=== PATIENT | female | born 1985 | race Hispanic/Latino ===

== ENCOUNTER 2021-08-13 21:49 | Emergency (ER) | payer SELFPAY ==
--- OUTSIDE RECORDS SUMMARY | 2021-08-13 21:53 | XMS REPORT | Continuity of Care Document ---
:[address] [facility] t Address [address] [place] [address] Care Team Providers Name Role Phone Spenser POLLOCK Primary Care Physician TRITSCHLER Attending Clinician Unavailable TRITSCHLER Attending Clinician Unavailable SPENSER Attending Clinician Unavailable Spenser POLLOCK Attending Clinician Doctor Unassigned, Name Attending Clinician Unavailable Pob, Lab Main Attending Clinician Unavailable Unknown Attending Clinician Unavailable SPENSER Admitting Clinician Unavailable Spenser POLLOCK Admitting Clinician Payers Payer Name Policy Type Policy Number Effective Date Expiration Date Deepti young [facility] [id number] 2020 00:00:00 R [id number] 2016 00:00:00 Problems Condition Condition Condition Status Onset Resolution Last Treating Co mments Source Name Details Category Date Date Treatment Clinician Date Liveborn Liveborn Disease Active Unive rs infant, of infant, of 5-28 [place] y of [place] , 00 [place] born in born in [facility] by by delivery delivery 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 5-26 [place]y of with mixed [place] emotional emotional 00 Medi emilie features features Branch Personal Personal Disease Active Unive rs history of history of 5-26 it y of return return 00:00: [place] 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 Other Other Disease Active Univers spondylosi spondylosi 5-26 it y of s with s with 00:00: [place] radiculopa radiculopa 00 Me dical thy, thy, Branch cervical cervical region region Hypothyroi Hypothyroi Disease Active U nivers dism dism 08-09 ity of 00:: [place] [facility] History of History of Disease Active U nivers 08-09 ity of section section 00:00: [place] [facility] Diet Diet Disease Active Univers controlled controlled 08-09 it y of gestationa gestationa 00:[place] l diabetes l diabetes 00 Me dical mellitus mellitus Branch (GDM), (GDM), antepartum antepartum Polyhydram Polyhydram Disease Active U nivers nios, nios, 08-09 ity of antepartum antepartum 00:00[place] , single , single 00 Medica l or or Branch unspecifie unspecifie d fetus d fetus Chronic Chronic Disease Active Univers hypertensi hypertensi 08-09 it y of on on 00:00: [place] affecting affecting 00 Medi emilie Bran ch Obesity in Obesity in Disease Active U nivers 08-09 ity of 00:00: [place] [facility] Supervisio Supervisio Disease Active U nivers n of n of 08-09 ity of high-risk high-risk 00:00[place] 00 Med[place] emilie of elderly of elderly Br anch multigravi multigravi da da Allergies, Adverse Reactions, Alerts Allergy Allergy Status Severity Reaction(s) Onset Inactive Treating Comm ents Source Name Type Date Date Clinician NO KNOWN Drug Active Univers ALLERGIE Class ity of S [facility] Social History Social Habit Start Date Stop Date Quantity Comments Source ASSERTION 2020-11-26 [facility] 00:00:00 [facility] Alcohol intake 2021-08-10 2021-08-10 Ex-drinker [facility] 00:00:00 00:00:00 (finding) [facility] Exposure to 2021-07-30 2021-08-09 Not sure University of SARS-CoV-2 00:00:00 09:36:00 [facility] (event) [facility] Tobacco use and 2021-08-09 2021-08-09 Never used Universit y of exposure 00:00:00 00:00:00 [facility] Sex Ass[birth year] Universit y of 00:00:00 00:00:00 [facility] Smoking Status Start Date Stop Date Source Never smoker [place] [facility] Branch Medications Ordered Filled Start Stop Current Ordering Indication Dosage Frequency Signature Comments Components Source Medication Medication Date Date Medication? Clinician (SIG) Name Name ibuprofen Yes 600mg 600 mg, Univ ers (IBU) 5-28 Oral, Q6H, ity of tablet 600 23:00: First dose [place] mg 00 on [facility] 08/11/21 at Branch 1800, Until Discontinu ed, Routine SERTraline Yes 100mg Take 100 Un krissy 100 mg 5-28 mg by ity of tablet 22:53: mouth [place] 44 daily. Medical Branch levothyroxi Yes 25ug Take 25 Uni vers ne 5-28 mcg by ity of (SYNTHROID) 22:53: mouth [place] 25 mcg 44 every Medical tablet morning. Branch traZODone Yes 100mg Take 100 Uni vers 100 mg 5-28 mg by ity of tablet 22:53: mouth at [place] [address] bedtime. Medical Branch metoprolol Yes Take by Uni vers succinate 5-28 mouth. ity of 25 mg CSpX 22:53: [place] 44 Medical Branch ergocalcife Yes Take by Un krissy rol, 5- mouth. ity of vitamin D2, 22:53: [place] (VITAMIN D 44 Medical ORAL) Branch Melatonin 5 Yes 1{tbl} Take 1 Un krissy mg tablet 5-28 tablet by ity o f 22:53: mouth as [place] [address] needed Medical (prn Branch sleep). diphenhydrA Yes 25mg Take 25 mg Univers MINE 5-28 by mouth ity of (BENADRYL) 22:53: at bedtime [place] 25 mg 44 as needed Medical capsule for Branch Allergies. aspirin 81 2021- No Take by Un krissy mg Cap -11 08- mouth. ity of 19:53: 00:00 [place] 57 :00 Medical Branch gabapentin 2021- No 300mg 300 mg, Un krissy (NEURONTIN) -11 08- Oral, ity of capsule 300 17:00: 17:38 ONCE, 1 [place] mg 00 :00 dose, On Medical [facility] 08/11/21 at 1200, Routine oxyCODONE 2021-0 Yes 10mg 10 mg, Univer s immediate 5- Oral, ity of release 15:12: Q6HPRN, [place] tablet 10 58 Starting Medica l mg on [facility] 08/11/21 at 1012, Until Discontinu ed, Routine, Pain (scale 7-10)<b r>membership sales advisor approving Restricted medication : ALON COOPER oxyCODONE 2021-0 Yes 5mg 5 mg, Univers immediate - Oral, ity of release 15:12: Q6HPRN, [place] tablet 5 mg 39 Starting Medi emilie on [facility] 08/11/21 at 1012, Until Discontinu ed, Routine, Pain (scale 4-6)
membership sales advisor approving Restricted medication : ALON COOPER metoprolol 2021-0 Yes 25mg 25 mg, Unive rs succinate - Oral, ity of XL (TOPROL 14:00: DAILY, [place] XL) tablet 00 First dose Med ical 25 mg on [facility] 08/11/21 at 0900, Until Discontinu ed levothyroxi 2021-0 Yes 25ug 25 mcg, Uni vers ne 5-28 Oral, ity of (SYNTHROID) 11:00: QAM-0600, [place] tablet 25 00 First dose Medi emilie mcg on [facility] 08/11/21 at 0600, Until Discontinu ed, Routine acetaminoph 2021-0 Yes 650mg 650 mg, Un krissy en - Oral, Q6H, ity of (TYLENOL) 05:00: First dose [place] tablet 650 00 on [facility] 08/11/21 at Branch 0000, Until Discontinu ed, Routine traZODone 2021-0 Yes 50mg 50 mg, Univer s (DESYREL) 5-28 Oral, QHS, ity of tablet 50 02:00: [place] dose [place] mg 00 on [facility] 08/10/21 at Branch 2100, Until Discontinu ed, Routine SERTraline 2021-0 Yes 100mg 100 mg, Uni vers (ZOLOFT) 5-28 Oral, QHS, ity o f tablet 100 02:00: First dose [place] mg 00 on Fri [facility] 08/10/21 at Branch 2100, Until Discontinu ed, Routine melatonin Yes 6mg 6 mg, Univers (MELATIN) -28 Oral, QHS, ity of tablet 6 mg 02:00: First dose 00 on Fri Medical 08/10/21 at Branch 2100, Until Discontinu ed docusate Yes [id number] 200mg Take 2 U nivers 100 mg 5-28 capsules ity of capsule 00:00: by mouth [place] 00 once daily Medical as needed Branch for Constipati on. ibuprofen Yes [id number] 600mg Take 1 Univers 600 mg 5-28 tablet by ity of tablet 00:00: mouth [place] 00 every 6 Medical (six) Branch hours as needed (Pain). Take with food or milk. ferrous Yes [id number] 325mg Take 1 Un krissy sulfate 325 - tablet by ity of mg (65 mg 00:00: mouth [place] iron) 00 daily. Medical tablet Branch ketorolac No 30mg 30 mg, Unive rs (TORADOL) 08-10 Slow IV ity of injection 23:00: 17:38 Push, Q6H, [place] 30 mg 00 :00 4 doses, Medical First dose Branch on Fri08/10/21 at 1800, Last dose on Fri08/11/21 at 1200, Routine rho(D) Yes 300ug 300 mcg, Univer s immune 08-10 Intramuscu ity of globulin 19:21: lar, ONCE, [place] as (RHOGAM) 17 For 1 Medical syringe 300 dose, Branch mcg Conditiona l, Routine diphenhydrA Yes 25mg 25 mg, Univ ers MINE 08-10 Slow IV ity of (BENADRYL) 19:19: Push, [place] injection 44 Q6HPRN, Medical 25 mg Starting Branch on 08/10/21 at 1419, Until Discontinu ed, Routine, Itching diphenhydrA Yes 25mg 25 mg, Univ ers MINE 08-10 Oral, ity of (BENADRYL) 19:19: Q6HPRN, [place] tablet 25 44 Starting Medica l mg on Fri Branch 08/10/21 at 1419, Until Discontinu ed, Routine, Sleep, Itching ondansetron 2022-0 Yes 4mg 4 mg, Slow Univers (ZOFRAN 08-10 IV Push, ity of (PF)) 19:19: Q8HPRN, [place] injection 4 44 Starting Medi emilie mg on Fri Branch 08/10/21 at 1419, Until Discontinu ed, Routine, Nausea and Vomiting (N/V) bisacodyL 0 Yes 10mg 10 mg, Univer s (DULCOLAX) 08-10 Rectal, ity of suppository 19:19: QDAILYPRN, [place] 10 mg 44 Starting Medical on Fri Branch 08/10/21 at 1419, Until Discontinu ed, Routine, Constipati on simethicone 0 Yes 160mg 160 mg, Un krissy (GAS RELIEF 08-10 Oral, ity of (SIMETHICON 19:19: PC+HSPRN, [place] E)) 44 Starting Medical chewable on Fri Branch tablet 160 08/10/21 at mg 1419, Until Discontinu ed, Routine, Gas docusate 0 Yes 200mg 200 mg, Unive rs (COLACE) 08-10 Oral, ity of capsule 200 19:19: QDAILYPRN, [place] mg 44 Starting Medical on Fri Branch 08/10/21 at 1419, Until Discontinu ed, Routine, Constipati on magnesium Yes 30mL 30 mL, Univer s hydroxide 08-10 Oral, ity of (MILK OF 19:19: QDAILYPRN, [place] MAGNESIA) 44 Starting Medica l 400 mg/5 mL on Fri Branch suspension 08/10/21 at 30 mL 1419, Until Discontinu ed, Routine, Constipati on sodium 0 Yes PRN, Univers chloride 08-10 Starting ity of 0.9 % 18:15: on Fri [place] irrigation 00 08/10/21 at Med ical solution 1315, Branch Until Discontinu ed, Intra-op sodium 2021-0 2021- No 30mL 30 mL, Univers citrate-cit 08-10 Oral, ity of zeeshan acid 15:55: 17:26 PRE-PROCED [place] (BICITRA) 12 :00 URE ONCE, Medic al 500-334 1 dose, Branch mg/5 mL Starting solution 30 on Fri mL 08/10/21 at 1055, Until Discontinu ed, Routine, Surgery/Pr ocedure lactated 2021- No 500mL at 999 Unive rs ringers IV 08-10 05-27 mL/hr, 500 it y of infusion 15:55: 19:21 mL, IV [place] 500 mL 12 :17 Infusion, Medical PRN - SEE Branch ITZEL NS, Starting on Fri08/10/21 at 1055, Until Fri08/10/21 at 1421, Routine 0 Yes Take by Unive rs vit/iron 5-26 mouth. ity of fum/folic 20:38: [place] [address] Medical ( 1 Branch + 1 ORAL) aspirin 81 Yes Take by Uni vers mg Cap 5-26 mouth. ity of 20:38: [address] Branch 0 Yes Take by Unive rs vit/iron 5-26 mouth. ity of fum/folic 20:38: [place] [address] Medical ( 1 Branch + 1 ORAL) aspirin 81 0 Yes Take by Uni vers mg Cap 5-26 mouth. ity of 20:38: [address] Branch metoprolol Yes Take by Uni vers succinate 5-26 mouth. ity of 25 mg CSpX 10:09: [place] [address] Medical Branch ergocalcife Yes Take by Un krissy rol, 5- mouth. ity of vitamin D2, 10:09: [place] (VITAMIN D 26 Medical ORAL) Branch SERTraline Yes 100mg Take 100 Un krissy 100 mg 5-26 mg by ity of tablet 10:09: mouth [place] [address] daily. Medical Branch levothyroxi Yes 25ug Take 25 Uni vers ne 5-26 mcg by ity of (SYNTHROID) 10:09: mouth [place] 25 mcg 26 every Medical tablet morning. Branch traZODone Yes 100mg Take 100 Uni vers 100 mg 5-26 mg by ity of tablet 10:09: mouth at [place] [address] bedtime. Medical Branch metoprolol Yes Take by Uni vers succinate 5-26 mouth. ity of 25 mg CSpX 10:09: [place] [address] Medical Branch ergocalcife Yes Take by Un krissy rol, 5-26 mouth. ity of vitamin D2, 10:09: [place] (VITAMIN D 26 Medical ORAL) Branch SERTraline Yes 100mg Take 100 Un krissy 100 mg 5-26 mg by ity of tablet 10:09: mouth [place] 26 daily. Medical Branch levothyroxi Yes 25ug Take 25 Uni vers ne 5-26 mcg by ity of (SYNTHROID) 10:09: mouth [place] 25 mcg 26 every Medical tablet morning. Branch traZODone Yes 100mg Take 100 Uni vers 100 mg 5-26 mg by ity of tablet 10:09: mouth at [place] [address] bedtime. Medical Branch metoprolol Yes Take by Uni vers succinate 5-26 mouth. ity of 25 mg CSpX 10:09: [place] Medical Branch ergocalcife Yes Take by Un krissy rol, 5-26 mouth. ity of vitamin D2, 10:09: [place] (VITAMIN D 26 Medical ORAL) Branch SERTraline Yes 100mg Take 100 Un krissy 100 mg 5-26 mg by ity of tablet 10:09: mouth [place] daily. Medical Branch levothyroxi Yes 25ug Take 25 Uni vers ne 5-26 mcg by ity of (SYNTHROID) 10:09: mouth [place] 25 mcg 26 every Medical tablet morning. Branch traZODone Yes 100mg Take 100 Uni vers 100 mg 5-26 mg by ity of tablet 10:09: mouth at [place] [address] bedtime. Medical Branch Vital Signs Vital Name Observation Time Observation Value Comments Source Systolic blood 2021-08-12 00:37:00 125 mm[Hg] Univer sity of pressure [facility] Diastolic blood 2021-08-12 00:37:00 81 mm[Hg[facility] Heart rate 2021-08-12 00:37:00 90 /min [facility] Body temperature 2021-08-12 00:37:00 36.5 Sarah [facility] Respiratory rate 2021-08-12 00:37:00 18 /min [facility] Oxygen saturation in 2021-08-12 00:37:00 98 /min [facility] Arterial blood by [facility] Pulse oximetry Branch Body height 2021-08-10 16:31:00 157.5 cm [facility] Body weight 2021-08-10 16:31:00 95.074 kg [facility] BMI 2021-08-10 16:31:00 38.34 kg/m2 [facility] Systolic blood 2021-08-09 15:16:00 136 mm[Hg] [facility] [place] Diastolic blood 2021-08-09 15:16:00 88 [facility]Hg[facility] 2021-08-09 15:16:00 97 /min [facility] Respiratory rate 2021-08-09 15:16:00 18 /min [facility] Body height 2021-08-09 15:16:00 157.5 cm [facility] Body weight 2021-08-09 15:16:00 95.397 kg [facility] BMI 2021-08-09 15:16:00 38.47 kg/m2 [facility] Procedures Procedure Date / Time Performing Clinician Source Performed CBC WITH DIFF 2021-08-11 08:42:00 [facility] POCT GLUCOSE 2021-08-10 17:03:00 [facility] (AUTOMATED) [facility] HEPATITIS B SURFACE 2021-08-10 17:01:00 [facility] ANTIGEN [facility] HB ABO GROUPING 2021-08-10 17:00:00 [facility] RHO (D) IMMUNE GLOBULIN 2021-08-10 17:00:00 [facility] ASSIGNMENT OF BENEFITS 2021-08-10 15:30:26 Doctor Unassigned, No [facility] Name [facility] NON-STRESS TEST 2021-08-09 21:42:15 [facility] CBC WITH DIFF 2021-08-09 18:15:00 [facility] GLYCOSYLATED HEMOGLOBIN 2021-08-09 18:15:00 [facility] (A1C) [facility] HIV 1/2 AG-AB WITH 2021-08-09 18:15:00 [facility] Alon Universit y of [facility] COVID-19 (ID NOW RAPID 2021-08-09 18:13:00 [facility] Medical Branch Encounters Start End Encounter Admission Attending Care Care Encounter Source Date/Time Date/Time Type Type Clinicians Facility Department ID 2021-08-17 2021-08-17 Outpatient R NANCY SHABAZZ [facility] B [id number] Univers 11:45:00 11:45:00 HARIKA NANCY ity of [facility] 2021-08-10 2021-08-11 Inpatient P ALON COOPER [facility] PETR [id number] Univers 10:36:00 21:16:00 ity of [facility] 2021-08-10 2021-08-11 [facility] Alon Cooper [facility] [id number] Univers 10:36:00 21:16:00 Encounter SIDDHARTH [id number] ity of CAROLYN 4.2.7.2.686 [facility] [id number] [facility] 083 Branch 2021-08-10 2021-08-10 Orders Doctor NAKUL [id number] Univers 00:00:00 00:00:00 Only Unassigned, FRANKIE [id number] ity of [place] [facility] 4.2.7.2.686 [place] [id number] [facility] 009 Branch 2021-08-09 2021-08-09 Tester Vibrator Equipment Tim, Janelle Lab Main [facility] 1.2.8 [id number] Univers 13:00:00 13:15:00 Visit Unknown, Attending SIDDHARTH 350.1.13.1 0 ity of Alon Cooper 4.2.7.2.686 [facility] [id number] Sc dical NAL 353 Branch BUILDING 2021-08-09 2021-08-09 Initial Alon Cooper [facility] [place] [id number] Univers 09:30:00 11:30:43 MANE 350.1.13.10 i ty of Visit WOMEN'S 4.2.7.2.686 [facility] [id number] [facility] 134 Branch 2021-08-09 2021-08-09 Outpatient ALON GODINEZ [facility] [id number] Univers 09:30:00 11:30:43 [facility] [place] [facility] Results Test Description Test Time Test Comments Results Result Comments Source CBC with Differential 2021-08-11 09:32:39 Test Item Value Reference Range Interpretation Comme nts WBC (test code = 6690-2) See_Comment [A utomated message] The system which ge nerated this result transmit jamal reference range: 4.30 - 1 1.10 10*3/?L. The reference r steven was not used to interpr et this result as normal/abnor mal. RBC (test code = 789-8) See_Comment L [Au tomated message] The system which ge nerated this result transmit jamal reference range: 3.93 - 5 .25 10*6/?L. The reference r steven was not used to interpr et this result as normal/abnor mal. HGB (test code = 718-7) 8.6 g/dL 11.6-15.0 L HCT (test code = 4544-3) 27.0 % 35.7-45.2 L MCV (test code = 787-2) 85.7 fL 80.6-95.5 MCH (test code = 785-6) 27.3 pg 25.9-32.8 MCHC (test code = 786-4) 31.9 g/dL 31.6-35.1 RDW-SD (test code = 56951-8) 41.4 fL 39.0-49.9 RDW-CV (test code = 788-0) 13.4 % 12.0-15.5 PLT (test code = 777-3) See_Comment [Au tomated message] The system which ge nerated this result transmit jamal reference range: 166 - 35 8 10*3/?L. The reference range was not used to interpret th is result as normal/abnormal . MPV (test code = 51325-8) 10.3 fL 9.5-12.9 NRBC/100 WBC (test code = See_Comment [ Automated message] The [id number]) system which ge nerated this result transmit jamal reference range: 0.0 - 10 .0 /100 WBCs. The reference r steven was not used to interpr et this result as normal/abnor mal. NRBC x10^3 (test code = <0.01 See_Comment [Au tomated message] The [id number]) system which ge nerated this result transmit jamal reference range: 10*3/?L. The reference range was not u sed to interpret this result as normal/abnormal . GRAN MAT (NEUT) % (test code 69.7 % = 770-8) IMM GRAN % (test code = 1.10 % [id number]) LYMPH % (test code = 736-9) 21.1 % MONO % (test code = 5905-5) 7.0 % EOS % (test code = 713-8) 0.7 % BASO % (test code = 706-2) 0.4 % GRAN MAT x10^3(ANC) (test 5.77 10*3/uL 1.88-7.09 code = 1736588697) IMM GRAN x10^3 (test code = 0.09 10*3/uL 0.00-0.06 H [id number]) LYMPH x10^3 (test code = 1.75 10*3/uL 1.32-3.29 731-0) MONO x10^3 (test code = 0.58 10*3/uL 0.33-0.92 742-7) EOS x10^3 (test code = 0.06 10*3/uL 0.03-0.39 711-2) BASO x10^3 (test code = 0.03 10*3/uL 0.01-0.07 704-7) Lab Interpretation (test Abnormal code = 14737-2) [facility] [id number] 21:01:36 Test Item Value Reference Range Interpretation Comments HBsAg Semi-Quantitative (test code = Negative Negative 5195-3) [facility] IMMUNE [id number] 19:37:13 Test Item Value Reference Range Interpretation Comments RHIG CANDIDATE? No- see comment Patient i s not a (test code = candidate for R hIg- 5055) Patient is Rh Positive.Perfor med at [facility] Laboratory Services - [facility] Blood [address] [place] [id number] Free: [phone] A No. [id number] [facility] and Screen - ONCE [id number] 18:16:22 Test Item Value Reference Range Interpretation Comments ABO & RH (test code A Positive Performe d at [facility] = 20) Laboratory Serv Formerly [facility] Blood Bank[address] [place], [place] [id number] Free: [phone] A No. [id number] IAT (test code = Negative Performed a t [facility] 1185) Laboratory Serv [facility] Blood [address] [place], [place] [id number] Free: [phone] A No. [id number] [facility] (AUTOMATED)2021-08-10 17:15:30 Test Item Value Reference Range Interpretation Comments POCT GLU (test code = 9816918370) 84 mg/dL 70-110 Lab Interpretation (test code = Normal 39540-6) [facility]
[2021-08-13] MEDS ORDERED: NA CHLORIDE 0.9% 1,000 ML ONE (22:48)
[2021-08-13] MEDS ORDERED: ONDANSETRON 4 MG/2 ML VIAL ONE (22:48)
[2021-08-13] MEDS ORDERED: MORPHINE 4 MG/ML SYR ONE (22:48)
[2021-08-13 22:53] LABS: Absolute Lymphocytes (CBC) 2.1 K/uL (0.7-4.9); Lymphocytes % 25.2 % (15.3-44.8); MPV 7.5 fL (7.6-11.3); RBC Red Blood Cell Count 2.62 M/uL (3.86-4.86)
[2021-08-13 22:54] LABS: Protime INR 0.88
[2021-08-13 23:15] LABS: ALT/SGPT 16 U/L (12-78); AST/SGOT 23 U/L (15-37); Albumin 2.2 g/dL (3.4-5.0); Alkaline Phosphatase 92 U/L (45-117); BUN Blood Urea Nitrogen 7 mg/dL (7-18); Bicarbonate 27 mmol/L (21-32); Bilirubin Total 0.3 mg/dL (0.2-1.0); Glomerular Filtration Rate 117 ml/min (=/>90); Glucose Level 95 mg/dL (74-106); Magnesium 1.6 mg/dL (1.8-2.4); NT PRO-BNP 113 pg/mL (<125); Potassium 3.2 mmol/L (3.5-5.1); Protein, Total 6.5 g/dL (6.4-8.2); Sodium Level 138 mmol/L (136-145); Troponin High Sensitivity 11.6 pg/mL (<58.9)
[2021-08-13 23:17] LABS: Bilirubin Direct < 0.1 mg/dL (0-0.2)
[2021-08-13 23:58] LABS: Blood Morphology Comment NOT SEEN (NOT SEEN); Platelet Estimate ADEQ; White Blood Cell Scan OK (OK)
[2021-08-14] MEDS ORDERED: MAGNESIUM SULFATE 1 gm IVPB 1 GM/100 ML BAG IV ONE (02:38)
[2021-08-14] MEDS ORDERED: POTASSIUM 25 MEQ EFFERV TAB ONE (02:38)
--- NOTE | 2021-08-14 03:17 | ER ---
Nurse's Notes [facility] Name: Soco Kirkpatrick Age: 36 yrs Sex: Female : 1985 Arrival Date: 08/13/2021 Time: 21:52 Bed 15 Private MD: Diagnosis: Atelectasis;Anemia, unspecified Presentation: 08/13 21:58 Chief complaint: Patient states: I have been having back pain, I haven't been able to jb4 relax. My heart feels like it is racing or beating weird. I am having shortness of breath upon exertion. Parent and/or Guardian states: She seems more lethargic now than she was earlier, she seems to be having a harder time speaking. Coronavirus screen: At this time, the client does not indicate any symptoms associated with coronavirus-19. Ebola Screen: No symptoms or risks identified at this time. Initial Sepsis Screen: Does the patient meet any 2 criteria? No. Patient's initial sepsis screen is negative. Does the patient have a suspected source of infection?. Risk Assessment: Do you want to hurt yourself or someone else? Patient reports no desire to harm self or others. Onset of symptoms was August 13, 2021. Transition of care: patient was not received from another setting of care. 21:58 Method Of Arrival: Wheelchair 4 21:58 Acuity: RON 2 jb4 Triage Assessment: 22:47 General: Appears in no apparent distress. anna 22:48 General: Behavior is calm, cooperative. 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 - Social history:: Smoking status: Patient denies any tobacco usage or history of. Patient/guardian denies using alcohol, street drugs. Screenin:47 Abuse screen: Denies threats or abuse. Denies injuries from another. Nutritional anna screening: No deficits noted. Tuberculosis screening: No symptoms or risk factors identified. Fall Risk None identified. Assessment: 22:48 Cardiovascular: Rhythm is sinus rhythm. anna 22:49 Pain: Pain began suddenly, 1 day ago. anna 22:49 Pain: Pain does not radiate. anna 22:49 Reassessment: I recv'd the pt to room #15 at 2200. The pt reports having had a anna , on Friday, at [facility] in [place]. She is now complaining of back pain. 23:28 Reassessment: CT is here to take the pt for the scan. anna 08/14 03:10 Reassessment: The MD is at bedside sharing the lab and radiological results with the pt anna and her family. She is in NAD. She reports feeling "much better". She was observed ambulating to the bathroom, without assist, and in no pain. 03:17 Reassessment: The pt is to be dc'd home after the magnesium has infused. anna Vital Signs: 08/13 21:58 BP 167 / 91; Pulse 98; Resp 16; Temp 98.2(TE); Pulse Ox 98% on R/A; Weight 90.72 kg jb4 (R); Height 5 ft. 2 in. (157.48 cm) (R); Pain 7/10; 22:15 BP 151 / 88; Pulse 89; Resp 18; Pulse Ox 100% on R/A; anna 22:46 BP 156 / 94; Pulse 90; Resp 18; Pulse Ox 100% on R/A; anna 23:27 BP 155 / 88; Pulse 88; Resp 16; Pulse Ox 100% on R/A; anna 08/14 02:17 BP 143 / 86; Pulse 76; Resp 16; Pulse Ox 100% on R/A; anna 02:49 BP 144 / 87; Pulse 77; Resp 16; Pulse Ox 100% on R/A; anna 03:47 BP 150 / 88; Pulse 78; Resp 16; Pulse Ox 100% on R/A; anna 08/13 21:58 Body Mass Index 36.58 (90.72 kg, 157.48 cm) jb4 ED Course: 08/13 21:52 Patient arrived in ED. jj6 22:01 Triage completed. jb4 22:01 Arm band placed on right wrist. jb4 22:04 O'Reyna, Kavitha, RN is Primary Nurse. anna 22:05 Reynold Sebastian MD is Attending Physician. 7 22:44 COVID-19 SARS RT PCR (Document "Date of Onset" if Symptomatic) Sent. anna 22:45 Basic Metabolic Panel Sent. anna 22:45 CBC with Diff Sent. anna 22:45 LFT's Sent. anna 22:45 Magnesium Sent. anna 22:45 NT PRO-BNP Sent. anna 22:45 PT-INR Sent. anna 22:45 Troponin HS Sent. anna 22:47 No provider procedures requiring assistance completed. anna 22:48 Bed in low position. Call light in reach. Adult w/ patient. Pulse ox on. NIBP on. anna 22:49 Patient maintains SpO2 saturation greater than 95% on room air. anna 23:00 XRAY Chest (1 view) In Process Unspecified. EDMS 23:59 CT Chest For PE Angio In Process Unspecified. EDMS 08/14 03:48 intact, bleeding controlled, No redness/swelling at site. Pressure dressing applied. anna Administered Medications: 08/13 23:09 Drug: morphine 4 mg Route: IVP; Infused Over: 4 mins; Site: right antecubital; anna 08/14 02:29 Follow up: Response: No adverse reaction anna 08/13 23:09 Drug: Zofran (Ondansetron) 4 mg Route: IVP; Site: right antecubital; anna 08/14 02:29 Follow up: Response: No adverse reaction anna 08/13 23:10 Drug: NS 0.9% 500 ml Route: IV; Rate: bolus; Site: right antecubital; anna 08/14 02:29 Follow up: Response: No adverse reaction; IV Status: Completed infusion anna 02:37 Drug: Potassium Effervescent Tablet 50 mEq Route: PO; anna 02:38 Follow up: Response: No adverse reaction anna 03:40 Follow up: Response: No adverse reaction anna 02:48 Drug: Magnesium Sulfate 1 grams Route: IVPB; Infused Over: 1 hrs; Site: right anna antecubital; 03:47 Follow up: Response: No adverse reaction; IV Status: Completed infusion anna Medication: 08/13 22:48 VIS not applicable for this client. anna Outcome: 22:49 Condition: stable anna 08/14 03:17 Discharge ordered by . mh7 03:48 Discharged to home ambulatory, with family. anna 03:48 Discharge instructions given to patient, Instructed on discharge instructions, follow up and referral plans. Demonstrated understanding of instructions, follow-up care. 03:49 Patient left the ED. anna Signatures: Dispatcher [employer] Vitor Huitron, RN RN jb4 Reynold Sebastian MD MD mh7 Magdalena Richardsonj6 Kavitha Rocha, RN RN anna
--- NOTE | 2021-08-14 03:17 | EDPHYS ---
Physician Documentation [facility] Name: Soco Kirkpatrick Age: 36 yrs Sex: Female : 1985 Arrival Date: 08/13/2021 Time: 21:52 Bed 15 Private MD: ED Physician Reynold Sebastian HPI: 08/13 22:29 This 36 yrs old Female presents to ER via Wheelchair with complaints of Post mh7 Surgical Pain, Post Problem, Irregular Pulse, Shortness Of Breath. 22:29 The patient has shortness of breath with light activity. Onset: The symptoms/episode mh7 began/occurred today. Duration: The symptoms are intermittent, with no pattern. The patient's shortness of breath is aggravated by exertion, light activity, is alleviated by sitting up. Associated signs and symptoms: Pertinent positives: chest pain, nausea, Pertinent negatives: non-productive cough, productive cough, diaphoresis, dizziness, fever, hemoptysis, loss of consciousness, numbness in extremities, visual changes, vomiting. Severity of symptoms: At their worst the symptoms were moderate today, in the emergency department the symptoms are unchanged. The patient has been recently seen by a physician: Had a at another hospital 3 days ago. 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 - Social history:: Smoking status: Patient denies any tobacco usage or history of. Patient/guardian denies using alcohol, street drugs. ROS: 22:29 Constitutional: Negative for fever, chills, and weight loss, Eyes: Negative for injury, mh7 pain, redness, and discharge, ENT: Negative for injury, pain, and discharge, Neck: Negative for injury, pain, and swelling, Abdomen/GI: Negative for abdominal pain, nausea, vomiting, diarrhea, and constipation, : Negative for injury, bleeding, discharge, and swelling, MS/Extremity: Negative for injury and deformity, Skin: Negative for injury, rash, and discoloration, Neuro: Negative for headache, weakness, numbness, tingling, and seizure, Psych: Negative for depression, anxiety, suicide ideation, homicidal ideation, and hallucinations, Allergy/Immunology: Negative for hives, rash, and allergies, Endocrine: Negative for neck swelling, polydipsia, polyuria, polyphagia, and marked weight changes, Hematologic/Lymphatic: Negative for swollen nodes, abnormal bleeding, and unusual bruising. Exam: 22:29 Eyes: Pupils equal round and reactive to light, extra-ocular motions intact. Lids and mh7 lashes normal. Conjunctiva and sclera are non-icteric and not injected. Cornea within normal limits. Periorbital areas with no swelling, redness, or edema. Neck: Trachea midline, no thyromegaly or masses palpated, and no cervical lymphadenopathy. Supple, full range of motion without nuchal rigidity, or vertebral point tenderness. No Meningismus. Chest/axilla: Normal chest wall appearance and motion. Nontender with no deformity. No lesions are appreciated. Cardiovascular: Regular rate and rhythm with a normal S1 and S2. No gallops, murmurs, or rubs. Normal PMI, no JVD. No pulse deficits. Respiratory: Lungs have equal breath sounds bilaterally, clear to auscultation and percussion. No rales, rhonchi or wheezes noted. No increased work of breathing, no retractions or nasal flaring. Abdomen/GI: Soft, non-tender, with normal bowel sounds. No distension or tympany. No guarding or rebound. No evidence of tenderness throughout. Back: No spinal tenderness. No costovertebral tenderness. Full range of motion. Skin: Warm, dry with normal turgor. Normal color with no rashes, no lesions, and no evidence of cellulitis. MS/ Extremity: Pulses equal, no cyanosis. Neurovascular intact. Full, normal range of motion. Neuro: Awake and alert, GCS 15, oriented to person, place, time, and situation. Cranial nerves II-XII grossly intact. Motor strength 5/5 in all extremities. Sensory grossly intact. Cerebellar exam normal. Normal gait. Psych: Awake, alert, with orientation to person, place and time. Behavior, mood, and affect are within normal limits. 22:29 Constitutional: The patient appears in no acute distress, alert, awake, anxious. Vital Signs: 21:58 BP 167 / 91; Pulse 98; Resp 16; Temp 98.2(TE); Pulse Ox 98% on R/A; Weight 90.72 kg jb4 (R); Height 5 ft. 2 in. (157.48 cm) (R); Pain 7/10; 22:15 BP 151 / 88; Pulse 89; Resp 18; Pulse Ox 100% on R/A; anna 22:46 BP 156 / 94; Pulse 90; Resp 18; Pulse Ox 100% on R/A; anna 23:27 BP 155 / 88; Pulse 88; Resp 16; Pulse Ox 100% on R/A; anna 08/14 02:17 BP 143 / 86; Pulse 76; Resp 16; Pulse Ox 100% on R/A; anna 02:49 BP 144 / 87; Pulse 77; Resp 16; Pulse Ox 100% on R/A; anna 03:47 BP 150 / 88; Pulse 78; Resp 16; Pulse Ox 100% on R/A; anna 08/13 21:58 Body Mass Index 36.58 (90.72 kg, 157.48 cm) jb4 MDM: 03:15 Differential diagnosis: Anemia Anxiety Reaction asthma, Bronchitis CHF exacerbation, mh7 Chronic Obstructive Pulmonary Disease Myocardial Infarction pneumonia, Pneumothorax Psychogenic pulmonary edema, Pulmonary Embolism reactive airway disease. Data reviewed: vital signs, nurses notes, lab test result(s), cardiac enzymes, CBC, electrolytes, urinalysis, EKG, radiologic studies, CT scan, plain films. Data interpreted: Pulse oximetry: on room air is 100 %. Interpretation: normal. Counseling: I had a detailed discussion with the patient and/or guardian regarding: the historical points, exam findings, and any diagnostic results supporting the discharge/admit diagnosis, the presence of at least one elevated blood pressure reading (>120/80) during this emergency department visit, lab results, radiology results, the need for outpatient follow up, to return to the emergency department if symptoms worsen or persist or if there are any questions or concerns that arise at home. Response to treatment: the patient's symptoms have resolved after treatment, the patient's blood pressure is in an acceptable range, mental status has returned to baseline, the patient no longer shows bradycardia, the patient is not short of breath, the patient is not tachycardic, the patient's pain is gone, the patient's temperature has normalized, the patient is now symptom free. 03:17 Patient medically screened. [facility] 08/13 22:12 Order name: Basic Metabolic Panel; Complete Time: : [facility] 08/13 22:12 Order name: CBC with Diff; Complete Time: : [facility] 08/13 22:12 Order name: LFT's; Complete Time: [facility] 08/13 22:12 Order name: Magnesium; Complete Time: [facility] 08/13 22:12 Order name: NT PRO-BNP; Complete Time: : [facility] 08/13 22:12 Order name: PT-INR; Complete Time: [facility] 08/13 22:12 Order name: Troponin HS; Complete Time: [facility] 08/13 22:12 Order name: XRAY Chest (1 view) [facility] 08/13 22:14 Order name: COVID-19 SARS RT PCR (Document "Date of Onset" if Symptomatic); Complete [facility] Time: 08/13 22:15 Order name: CT Chest For PE Angio [facility] 08/13 23:01 Order name: CBC Smear Scan; Complete Time: 01: [facility] 08/13 22:12 Order name: EKG; Complete Time: 22:13 [facility] 08/13 22:12 Order name: Cardiac monitoring [facility] 08/13 22:12 Order name: EKG - Nurse/Tech; Complete Time: 22:44 [facility] 08/13 22:12 Order name: IV Saline Lock; Complete Time: 22:44 [facility] 08/13 22:12 Order name: Labs collected and sent; Complete Time: 22:44 [facility] 08/13 22:12 Order name: O2 Per Protocol; Complete Time: 22:44 [facility] 08/13 22:12 Order name: O2 Sat Monitoring; Complete Time: 22:45 [facility] Administered Medications: 08/13 23:09 Drug: morphine 4 mg Route: IVP; Infused Over: 4 mins; Site: right antecubital; 08/14 02:29 Follow up: Response: No adverse reaction 08/13 23:09 Drug: Zofran (Ondansetron) 4 mg Route: IVP; Site: right antecubital; 08/14 02:29 Follow up: Response: No adverse reaction anna 08/13 23:10 Drug: NS 0.9% 500 ml Route: IV; Rate: bolus; Site: right antecubital; anna 08/14 02:29 Follow up: Response: No adverse reaction; IV Status: Completed infusion anna 02:37 Drug: Potassium Effervescent Tablet 50 mEq Route: PO; anna 02:38 Follow up: Response: No adverse reaction anna 03:40 Follow up: Response: No adverse reaction anna 02:48 Drug: Magnesium Sulfate 1 grams Route: IVPB; Infused Over: 1 hrs; Site: right anna antecubital; 03:47 Follow up: Response: No adverse reaction; IV Status: Completed infusion anna Disposition Summary: 08/14/21 03:17 Discharge Ordered Location: Home [facility] Problem: new [facility] Symptoms: have improved [facility] Condition: Stable [facility] Diagnosis - Atelectasis 7 - Anemia, unspecified 7 Followup: [facility] - With: Private Physician - When: 1 - 2 days - Reason: Worsening of condition, Recheck today's complaints, Continuance of care, Re-evaluation by your physician Discharge Instructions: - Discharge Summary Sheet 7 - Anemia 7 - Atelectasis, Adult [facility] - How to Use an Incentive Spirometer [facility] - Form - Incentive Spirometer Record [facility] Forms: - Medication Reconciliation Form [facility] - Thank You Letter [facility] - Antibiotic Education [facility] - Prescription Opioid Use [facility] Signatures: Dispatcher [employer] Vitor Huitron RN RN jb4 Reynold Sebastian MD MD 7 Kavitha Rocha RN RN bo Brown, Sophia, PA PA sb3
[2021-08-14 04:10] VITALS: TEMP 98.2
[2021-08-14 04:15] VITALS: O2SAT 100
[2021-08-14 04:24] VITALS: BP 150/88
--- NOTE | 2021-08-14 12:12 | RAD REPORT ---
EXAM DESCRIPTION: CT - Chest For Pe Angio - 08/14/2021 6:37 am CLINICAL HISTORY: The patient is 36 years old and is Female; chest pain TECHNIQUE: Axial computed tomographic angiography images of the chest with intravenous contrast. S agittal and coronal reformatted images were created and reviewed. This CT exam was performed using one or more of the following dose reduction techniques: automated exposure control, adjustment of t he mA and/or kV according to patient size, and/or use of iterative reconstruction technique. MIP reconstructed images were created and reviewed. COMPARISON: No relevant prior studies available. FINDINGS: TRACHEA: The tracheobronchial tree is widely patent. PULMONARY ARTERIES: There are no obvious filling defects identified within the pulmonary arterie s to suggest pulmonary embolism. AORTA: No acute findings. No thoracic aortic aneurysm. LUNGS: Minimal linear atelectasis/scarring within the left lower lobe is present. The lungs are otherwise clear. PLEURAL SPACE: Unremarkable. No significant effusion. No pneumothorax. HEART: Unremarkable. No cardiomegaly. No significant pericardial effusion. No evidence of RV dysfunction. BONES/JOINTS: No acute fracture. No dislocation. SOFT TISSUES: Unremarkable. LYMPH NODES: Unremarkable. No enlarged lymph nodes. GALLBLADDER AND BILE DUCTS: The gallbladder surgically absent. IMPRESSION: 1. No evidence of pulmonary embolism. 2. Linear atelectasis/scarring within the left lower lobe. Electronically signed by: Sania Salmeron MD 08/14/2021 12:23 AM CDT Due to temporary technical issues with the PACS/Fluency reporting system, reports are being signed by the in house radiologist without review as a courtesy to ensure prompt reporting. The interpreting r adiologist is fully responsible for the content of the report.
--- NOTE | 2021-08-14 12:17 | EKG ---
Test Date: 2021-08-13 Test Time: 22:18:57 Pan Puller: MEASUREMENT RESULTS: Intervals: Rate: 82 [place]: 142 QRSD: 88 QT: 358 QTc: 418 [place]: P: 46 [place]: 142 QRS: 41 T: 12 INTERPRETIVE STATEMENTS: Normal sinus rhythm Normal ECG No previous ECG available for comparison Electronically Signed On 08-14-21 12:16:32 CDT by Matthew Owens
--- NOTE | 2021-08-14 12:20 | RAD REPORT ---
EXAM DESCRIPTION: RAD - Chest Single View - 08/13/2021 10:58 pm CLINICAL HISTORY: 36 years Female Chest pain COMPARISON: None TECHNIQUE: AP view of the chest was obtained. FINDINGS: Cardiac silhouette is enlarged. Central vessels are mildly increased. No effusions bilaterally. Bilateral perihilar and infrahilar airspace opacities. No consolidation. No pneumothorax. IMPRESSION: Enlarged heart with mild central congestion. Bilateral perihilar and infrahilar atelectatic change versus infiltrate or pulmonary congestion. Electronically signed by: Olga Loyd MD 08/14/2021 12:46 AM CDT Due to temporary technical issues with the PACS/Fluency reporting system, reports are being signed by the in house radiologist without review as a courtesy to ensure prompt reporting. The interpreting r adiologist is fully responsible for the content of the report.
== END 2021-08-14 03:49 | disposition home or self-care (01) ==
LOC: ER 21:49
DX: J98.11 Atelectasis (principal); D64.9 Anemia, unspecified; Z20.822 Contact with and (suspected) exposure to COVID-19
CPT/HCPCS: 36415; 71045; 71275; 80048; 80076; 83735; 83880; 84484; 85025; 85610; 93005; 96361; 96365; 96375; 99285; J2405; J3475; J7030; Q9967; U0003